=== PATIENT | female | born 1935 | race African-American/Black ===

== ENCOUNTER 2016-09-15 07:29 | Emergency (ER) | payer OTHER ==
[~2016-09-15] VITALS: Ht 167.6 cm; Wt 76.0 kg
[2016-09-15] MEDS ORDERED: ASPIRIN 81MG TABLET PO STA (08:34)
[2016-09-15] MEDS ORDERED: NITROGLYCERIN 0.4MG TABLET SL SL PRN (08:45)
[2016-09-15 08:51] LABS: BASOPHILS % 0.5 % (0.0-2.0); HEMATOCRIT. 41.6 % (36.0-48.0); HEMOGLOBIN. 13.7 g/dL (12.0-16.0); LYMPHOCYTES % 45.7 % (20.0-50.0); MEAN CORPUSCULAR HEMOGLOBIN 31.1 pg (28.0-32.0); MEAN CORPUSCULAR HGB CONC 32.9 g/dL (31.0-37.0); MEAN CORPUSCULAR VOLUME 94.4 fL (81.0-99.0); MEAN PLATELET VOLUME 8.5 fl (7.4-10.4); NEUTROPHILS % 40.8 % (40.0-76.0); PLATELET 238 x1000/uL (130-400); RED BLOOD CELL COUNT 4.41 mill/uL (4.2-5.4); RED CELL DISTRIBUTION WIDTH 13.7 % (11.6-14.6); WHITE BLOOD COUNT 4.3 x1000/uL (4.5-11.0)
[2016-09-15 08:57] LABS: ANION GAP 13; CALCIUM 9.6 mg/dL (8.5-10.1); CARBON DIOXIDE 28 mEq/L (21-32); CHLORIDE 104 mEq/L (98-107); INDEX HEMOLYSI 1 (1-3); INDEX ICTERIC 1 (1-4); INDEX LIPEMIC 1 (1-3); UREA NITROGEN BLOOD 10 mg/dL (7-21)
[2016-09-15 09:03] LABS: NT PRO B-TYPE NATRIURETIC PEP 30 pg/mL (5-125); TROPONIN I < 0.02 ng/mL (0.00-0.04); eGFR > 60 mL/min (>60)
[2016-09-15 09:11] LABS: D-DIMER 2.9 mg/L FEU (<0.50); PARTIAL THROMBOPLASTIN TIME 24.6 sec (24.0-34.0)
[2016-09-15 13:21] VITALS: BP 133/56
[2016-09-15] MEDS ORDERED: IOHEXOL-350 100 ML BOTTLE ONE (13:52)
[2016-09-15] MEDS ORDERED: SODIUM CHLORIDE 0.9% 10ML VIAL ONE (13:52)
== END 2016-09-15 13:24 | disposition short-term general hospital (02) ==
LOC: ER 08:38
DX: R07.89 Other chest pain (principal); R11.0 Nausea; H40.9 Unspecified glaucoma; E11.9 Type 2 diabetes mellitus without complications; Z88.0 Allergy status to penicillin; Z88.6 Allergy status to analgesic agent
CPT/HCPCS: 36415; 71010; 71275; 80048; 82962; 83880; 84484; 85025; 85379; 85610; 85730; 93005; 93970; 99285; A4216; Q9967

== ENCOUNTER 2016-09-22 20:09 | Emergency (ER) | payer OTHER ==
[~2016-09-22] VITALS: Ht 170.2 cm; Wt 73.0 kg
[2016-09-22] MEDS ORDERED: KETOROLAC 60MG/2ML VIAL IM ONE (23:00)
[2016-09-23 01:20] VITALS: BP 142/66
== END 2016-09-23 01:25 | disposition home or self-care (01) ==
LOC: ER 20:19
DX: S83.92XA Sprain of unspecified site of left knee, initial encounter (principal); Z88.0 Allergy status to penicillin; Z88.2 Allergy status to sulfonamides; Z88.6 Allergy status to analgesic agent; E11.9 Type 2 diabetes mellitus without complications; H40.9 Unspecified glaucoma; X50.0XXA Overexertion from strenuous movement or load, initial encounter; Y93.89 Activity, other specified; Y99.9 Unspecified external cause status; Y92.89 Other specified places as the place of occurrence of the external cause
CPT/HCPCS: 73562; 96372; 99284; J1885; L1830

== ENCOUNTER 2021-06-07 10:36 | Emergency (ER) | payer OTHER ==
[~2021-06-07] VITALS: Ht 160 cm; Wt 65.0 kg
[2021-06-07] MEDS ORDERED: SODIUM CHLORIDE 0.9% 1,000 ML IV ONE (11:15)
[2021-06-07 12:27] LABS: BASOPHILS % 0.2 % (0.0-2.0); EOSINOPHILS % 0.5 % (0.0-5.0); HEMOGLOBIN. 14.7 g/dL (12.0-16.0); LYMPHOCYTES % 15.2 % (20.0-50.0); MEAN CORPUSCULAR HEMOGLOBIN 31.5 pg (28.0-32.0); MEAN CORPUSCULAR VOLUME 94.5 fL (81.0-99.0); MONOCYTES % 8.7 % (2.0-8.0); NEUTROPHILS % 75.4 % (40.0-76.0); PLATELET 223 x1000/uL (130-400); RED BLOOD CELL COUNT 4.66 mill/uL (4.2-5.4); RED CELL DISTRIBUTION WIDTH 13.9 % (11.6-14.6)
[2021-06-07 12:32] LABS: CHLORIDE 102 mEq/L (98-107)
[2021-06-07 12:36] LABS: ETHANOL BLOOD < 10 mg/dL
[2021-06-07] MEDS ORDERED: KETOROLAC 30MG/ML VIAL IV ONE (14:15)
[2021-06-07 16:50] VITALS: BP 120/50
== END 2021-06-07 18:00 | disposition short-term general hospital (02) ==
LOC: ER 10:51 → CANBEDREQ 19:59
DX: R55 Syncope and collapse (principal); E11.65 Type 2 diabetes mellitus with hyperglycemia; Z20.822 Contact with and (suspected) exposure to COVID-19; Z86.718 Personal history of other venous thrombosis and embolism; Z88.0 Allergy status to penicillin; Z88.2 Allergy status to sulfonamides; Z88.6 Allergy status to analgesic agent
CPT/HCPCS: 36415; 70450; 71045; 80053; 80320; 80329; 82962; 83605; 84484; 85025; 87426; 93005; 96361; 96374; 99285; J1885; J7030; G0480